=== PATIENT | female | born 1945 | race Caucasian/White ===

== ENCOUNTER 2017-12-22 14:57 | Outpatient (CLI) | payer BC | END 2017-12-22 14:58 | disposition home or self-care (01) | LOC: BICMAMMO 14:57 | PROVIDERS: ATTEND Specialist | DX: D05.12 Intraductal carcinoma in situ of left breast (principal); Z85.3 Personal history of malignant neoplasm of breast | CPT/HCPCS: 77066; G0279 ==

== ENCOUNTER 2018-12-16 10:06 | Outpatient (CLI) | payer BC ==
--- NOTE | 2018-12-16 10:50 | MMO ---
Bilateral MAMMO Bilat Diag [facility]. CLINICAL HISTORY: Patient is 73 years old and is seen for diagnostic exam. The patient has no family history of breast cancer. The patient has a history of malignant (generic) at age 70. The patient has a history of left Ultrasound Guided Core Biopsy in 2016 - malignant and left Lumpectomy in 2016 - malignant. VIEWS: The views performed were: bilateral craniocaudal with tomosynthesis; bilateral mediolateral oblique with tomosynthesis; and bilateral mediolateral. FILMS COMPARED: The present examination has been compared to prior imaging studies performed at [facility] on 05/09/2015, 11/07/2015, 12/03/2016 and 12/22/2017. MAMMOGRAM FINDINGS: There are scattered fibroglandular densities. There are stable benign appearing calcifications seen in both breasts. There are also vascular calcifications. There are no suspicious masses, suspicious calcifications, or new areas of architectural distortion. IMPRESSION: THERE IS NO MAMMOGRAPHIC EVIDENCE OF MALIGNANCY. A ROUTINE FOLLOW-UP MAMMOGRAM IN 1 YEAR IS RECOMMENDED. THE RESULTS OF THIS EXAM WERE SENT TO THE PATIENT. ACR BI-RADS Category 2 - Benign finding MAMMOGRAPHY NOTE: 1. A negative mammogram report should not delay a biopsy if a dominant of clinically suspicious mass is present. 2. Approximately 10% to 15% of breast cancers are not detected by mammography. 3. Adenosis and dense breasts may obscure an underlying neoplasm.
== END 2018-12-16 10:07 | disposition home or self-care (01) ==
LOC: BICMAMMO 10:06
PROVIDERS: ATTEND Specialist
DX: Z08 Encounter for follow-up examination after completed treatment for malignant neoplasm (principal); Z86.000 Personal history of in-situ neoplasm of breast
CPT/HCPCS: 77066; G0279

== ENCOUNTER 2019-12-20 10:02 | Outpatient (CLI) | payer BC ==
--- NOTE | 2019-12-20 10:27 | MMO ---
Bilateral MAMMO Bilat Diag [facility]. CLINICAL HISTORY: Patient is 74 years old and is seen for diagnostic exam. The patient has no family history of breast cancer. The patient has a history of malignant (generic) at age 70. The patient has a history of left Ultrasound Guided Core Biopsy in 2016 - malignant and left Lumpectomy in 2016 - malignant. VIEWS: The views performed were: bilateral craniocaudal with tomosynthesis; bilateral mediolateral oblique with tomosynthesis; and bilateral mediolateral with tomosynthesis. FILMS COMPARED: The present examination has been compared to prior imaging studies performed at [facility] on 11/07/2015, 12/03/2016, 12/22/2017 and 12/16/2018. This study has been interpreted with the assistance of computer-aided detection. MAMMOGRAM FINDINGS: There are scattered fibroglandular densities. Finding 1: There are stable benign appearing calcifications seen in both breasts. Finding 2: There are stable post operative changes seen in the left breast. There are no suspicious masses, suspicious calcifications, or new areas of architectural distortion. IMPRESSION: THERE IS NO MAMMOGRAPHIC EVIDENCE OF MALIGNANCY. A ROUTINE FOLLOW-UP MAMMOGRAM IN 1 YEAR IS RECOMMENDED. THE RESULTS OF THIS EXAM WERE SENT TO THE PATIENT. ACR BI-RADS Category 2 - Benign finding MAMMOGRAPHY NOTE: 1. A negative mammogram report should not delay a biopsy if a dominant of clinically suspicious mass is present. 2. Approximately 10% to 15% of breast cancers are not detected by mammography. 3. Adenosis and dense breasts may obscure an underlying neoplasm. Reported by: ALEXX DOTY MD Electonically Signed: [id number]
== END 2019-12-20 10:03 | disposition home or self-care (01) ==
LOC: BICMAMMO 10:02
PROVIDERS: ATTEND Specialist
DX: Z08 Encounter for follow-up examination after completed treatment for malignant neoplasm (principal); Z86.000 Personal history of in-situ neoplasm of breast
CPT/HCPCS: 77066; G0279

== ENCOUNTER 2020-12-23 11:34 | Outpatient (CLI) | payer BC | END 2020-12-23 11:35 | disposition home or self-care (01) | LOC: BICMAMMO 11:34 | PROVIDERS: ATTEND Specialist | DX: Z12.31 Encounter for screening mammogram for malignant neoplasm of breast (principal); Z85.3 Personal history of malignant neoplasm of breast; Z98.890 Other specified postprocedural states | CPT/HCPCS: 77063; 77067 ==

== ENCOUNTER 2022-03-03 09:37 | Outpatient (CLI) | payer BC | END 2022-03-03 09:38 | disposition home or self-care (01) | LOC: BICMAMMO 09:37 | PROVIDERS: ATTEND Family Medicine | DX: Z12.31 Encounter for screening mammogram for malignant neoplasm of breast (principal); Z98.890 Other specified postprocedural states; Z85.3 Personal history of malignant neoplasm of breast | CPT/HCPCS: 77063; 77067 ==

== ENCOUNTER 2023-03-17 11:32 | Outpatient (CLI) | payer BC, MEDICARE | END 2023-03-17 11:33 | disposition home or self-care (01) | LOC: BICMAMMO 11:32 | PROVIDERS: ATTEND Family Medicine | DX: Z12.31 Encounter for screening mammogram for malignant neoplasm of breast (principal); Z85.3 Personal history of malignant neoplasm of breast; Z98.890 Other specified postprocedural states | CPT/HCPCS: 77063; 77067 ==